=== PATIENT | female | born 1965 | race Caucasian/White ===

== ENCOUNTER 2023-02-11 19:28 | Emergency (ER) | payer MEDICAID ==
[~2023-02-11] VITALS: Ht 160 cm; Wt 53.6 kg
[2023-02-11 20:27] LABS: BASOPHILS % (AUTO) 0.5 % (0-1); EOSINOPHILS # (AUTO) 0.4 X10'3 (0-0.9); EOSINOPHILS % (AUTO) 3.9 % (0-6); HEMATOCRIT 38.5 % (35.0-45.0); HEMOGLOBIN 12.9 g/dl (12.0-16.0); LYMPHOCYTES # (AUTO) 2.6 X10'3 (1.1-4.8); LYMPHOCYTES % (AUTO) 28.7 % (21-51); MEAN CORPUSCULAR HEMOGLOBIN 30.1 PG (27.0-31.0); MEAN CORPUSCULAR HGB CONC 33.5 g/dL (33.0-36.5); MEAN CORPUSCULAR VOLUME 89.7 FL (78-98); MEAN PLATELET VOLUME 7.3 FL (7.4-10.4); MONOCYTES # (AUTO) 0.8 X10'3 (0-0.9); MONOCYTES % (AUTO) 8.5 % (2-12); NEUTROPHILS # (AUTO) 5.2 X10'3 (1.8-7.7); NEUTROPHILS % (AUTO) 58.4 % (42-75); PLATELET COUNT 368 X10'3 (140-440); RED BLOOD COUNT 4.29 X10'6 (4.20-5.60); RED CELL DISTRIBUTION WIDTH 15.7 % (11.5-14.5)
[2023-02-11 20:29] LABS: BILIRUBIN,URINE NEGATIVE (Neg); CLARITY,URINE SLIGHTLY CLOUDY (Clear); COLOR,URINE YELLOW (Yellow); GLUCOSE, URINE NEGATIVE (Neg); KETONES,URINE NEGATIVE (Neg); LEUKOCYTE ESTERASE ,URINE TRACE (Neg); NITRITES, URINE NEGATIVE (Neg); OCCULT BLOOD,URINE NEGATIVE (Neg); PROTEIN,URINE NEGATIVE (Neg); UROBILINOGEN,URINE 0.2 E.U/dL (0.2-1.0)
[2023-02-11 20:36] LABS: UA COLLECTION TYPE CLN CATCH MIDSTREAM
[2023-02-11 20:37] LABS: BACTERIA,URINE NONE SEEN /HPF (Neg); MUCUS STRANDS FEW /LPF (Neg); RBC,URINE 0-2 /HPF (0-2); SQUAMOUS EPITHELIAL CELL,UR FEW /LPF (FEW); WBC,URINE 0-4 /HPF (0-4)
[2023-02-11 20:42] LABS: ALANINE AMINOTRANSFERASE 20 U/L (12-78); ALBUMIN 3.8 G/DL (3.4-5.0); ALBUMIN/GLOBULIN RATIO 1.1 (1.1-1.5); ALKALINE PHOSPHATASE 60 IU/L (46-116); ANION GAP 9 (8-16); ASPARTATE AMINO TRANSFERASE 15 U/L (10-37); BILIRUBIN,TOTAL 0.4 MG/DL (0.1-1.0); BLOOD UREA NITROGEN 18 MG/DL (7-18); BUN/CREATININE RATIO 17.5 (10.0-20.0); CALCIUM 9.5 MG/DL (8.5-10.1); CHLORIDE 103 MMOL/L (99-107); CREATININE 1.03 MG/DL (0.40-0.90); GLUCOSE 112 MG/DL (70-104); POTASSIUM 3.8 MMOL/L (3.5-5.1); SODIUM 138 MMOL/L (135-145); TOTAL CARBON DIOXIDE 26.2 MMOL/L (24-32); TOTAL PROTEIN 7.3 G/DL (6.4-8.2); eCRCL 48 ML/MIN; eGFR 55 ML/MIN
[2023-02-11 20:44] LABS: URINE AMPHETAMINE SCREEN POSITIVE (Neg); URINE BARBITUATE SCREEN NEGATIVE (Neg); URINE BENZODIAZEPINES SCREEN NEGATIVE (Neg); URINE CANNABINOID SCREEN NEGATIVE (Neg); URINE COCAINE SCREEN NEGATIVE (Neg); URINE METHADONE SCREEN NEGATIVE (Neg); URINE OPIATE SCREEN NEGATIVE (Neg); URINE PHENCYCLIDINE SCREEN NEGATIVE (Neg)
[2023-02-11 20:51] LABS: ETHANOL < 10 MG/DL (<10); THYROID STIMULATING HORMONE 1.06 ulU/ml (0.34-4.50)
[2023-02-11 20:53] LABS: URINE HCG NEGATIVE (NEG)
--- NOTE | 2023-02-11 21:30 | NUR ---
Received pt from [facility]. PT here for SI, pt currently has thoughts but no plan. Pt has not been seen by an MD yet.
[2023-02-11] MEDS ORDERED: acetaminophen 325mg tablet PO ONE (23:35)
--- NOTE | 2023-02-11 23:36 | NUR ---
Dr is at beside assessing pt. Pt is cooperative.
--- NOTE | 2023-02-12 00:52 | NUR ---
Pt states she hears voices but does not elaborate, she also verbalizes HI and when asked who, she states she does not know who. Pt is homesless +meth, denies alcohol use.
--- NOTE | 2023-02-12 00:54 | NUR ---
Pt appears to be sleeping.
--- NOTE | 2023-02-12 03:03 | NUR ---
Pt appears to be sleeping
[2023-02-12 05:50] VITALS: BP 114/60; PULSE 72; RESP 16; TEMP 97.7; O2SAT 97
[2023-02-12] MEDS ORDERED: ziprasidone IM 20mg inj **IM only IM ONE (06:10)
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
--- NOTE | 2023-02-12 08:16 | NUR ---
Faxed packet to [facility]
--- NOTE | 2023-02-12 08:17 | NUR ---
Patient continues to sleep. Respirations equal and nonlabored. No distress observed.
--- NOTE | 2023-02-12 10:16 | NUR ---
Patient sitting up in bed eating. No distress observed. Continue to monitor.
--- NOTE | 2023-02-12 13:28 | NUR ---
Note jocynandini in ED - 02/12/23 at 1331 by SOM Choking: Pt may have been choking on her watermelon. Pt attempting to cough it out. Assisted pt with heimlich maneuver. This was successful. Pt coughed up pieces of watermelon. Pt encouraged to cut up smaller pieces. Pt continues eating lunch.
--- NOTE | 2023-02-12 13:32 | NUR ---
Choking: Pt may have been choking on her watermelon. Pt attempting to cough it out. Assisted pt with heimlich maneuver. This was successful. Pt coughed up pieces of watermelon. Pt encouraged to cut up smaller pieces. Pt continues eating lunch.
[2023-02-12] MEDS ORDERED: LORazepam 1 MG tablet PO ONE (14:25)
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
--- NOTE | 2023-02-12 16:11 | NUR ---
Patient sleeping and is soon to be discharged as patient denies being suicidal. RN to give patient her clothes to get dressed and will give the patient a sack lunch. Patient is on the 30 day out at the [facility].
== END 2023-02-12 20:04 | disposition home or self-care (01) ==
LOC: EDBD 19:28 → ER 19:28
DX: R45.851 Suicidal ideations (principal); Z20.822 Contact with and (suspected) exposure to COVID-19
CPT/HCPCS: 36415; 80053; 80305; 80320; 81001; 81025; 84443; 85025; 87811; 99285

== ENCOUNTER 2024-10-14 08:39 | Outpatient (CLI) | payer MEDICAID ==
[2024-10-14 09:11] LABS: BASOPHILS # (AUTO) 0.1 X10'3 (0-0.2); EOSINOPHILS # (AUTO) 0.1 X10'3 (0-0.9); EOSINOPHILS % (AUTO) 1.9 % (0-6); HEMATOCRIT 42.4 % (35.0-45.0); HEMOGLOBIN 14.3 g/dl (12.0-16.0); LYMPHOCYTES # (AUTO) 1.6 X10'3 (1.1-4.8); LYMPHOCYTES % (AUTO) 27.7 % (21-51); MEAN CORPUSCULAR HEMOGLOBIN 29.5 PG (27.0-31.0); MEAN CORPUSCULAR HGB CONC 33.6 g/dL (33.0-36.5); MEAN CORPUSCULAR VOLUME 87.7 FL (78-98); MEAN PLATELET VOLUME 7.1 FL (7.4-10.4); MONOCYTES # (AUTO) 0.4 X10'3 (0-0.9); MONOCYTES % (AUTO) 7.6 % (2-12); NEUTROPHILS # (AUTO) 3.7 X10'3 (1.8-7.7); NEUTROPHILS % (AUTO) 61.8 % (42-75); PLATELET COUNT 364 X10'3 (140-440); RED BLOOD COUNT 4.83 X10'6 (4.20-5.60); RED CELL DISTRIBUTION WIDTH 14.5 % (11.5-14.5); WHITE BLOOD COUNT 5.9 X10'3 (4.5-11.0)
[2024-10-14 09:28] LABS: HEMOGLOBIN A1C 5.5 % (4.5-6.2)
[2024-10-14 09:29] LABS: ALANINE AMINOTRANSFERASE 18 U/L (12-78); ALBUMIN 3.7 G/DL (3.4-5.0); ALBUMIN/GLOBULIN RATIO 1.1 (1.1-1.5); ALKALINE PHOSPHATASE 79 IU/L (46-116); ANION GAP 5 (8-16); ASPARTATE AMINO TRANSFERASE 14 U/L (10-37); BILIRUBIN,TOTAL 0.5 MG/DL (0.1-1.0); BLOOD UREA NITROGEN 13 MG/DL (7-18); BUN/CREATININE RATIO 12.9 (10.0-20.0); CALCIUM 8.9 MG/DL (8.5-10.1); CHLORIDE 106 MMOL/L (99-107); CREATININE 1.01 MG/DL (0.40-0.90); GLUCOSE 90 MG/DL (70-104); POTASSIUM 3.8 MMOL/L (3.5-5.1); SODIUM 140 MMOL/L (135-145); THYROID STIMULATING HORMONE 2.73 ulU/ml (0.34-4.50); TOTAL CARBON DIOXIDE 29.3 MMOL/L (24-32); TOTAL PROTEIN 7.2 G/DL (6.4-8.2); eGFR 56 ML/MIN
[2024-10-14] MEDS ORDERED: iohexol 300mg/ml 100ml inj. ONE (09:32)
--- NOTE | 2024-10-14 12:53 | RADIOLOGY REPORT ---
Exam: CT CT ABDOMEN PELVIS W/WO IV CONTRAST History: OTHER SPECIFIED DISORDERS OF KIDNEY AND URETER Comparison Study: None available at time of dictation. Technique: Multidetector spiral CT of the abdomen and pelvis was performed from lung bases to pubic s ymphysis. Initial imaging was done without IV contrast, followed by post contrast images of the abdo men and pelvis. Intravenous contrast was administered during this examination. Multi phase imaging w as obtained. Axial, coronal and sagittal multiplanar reformats were performed by the technologist on a separate workstation. CONTRAST: Type of contrast: Omni 300 Contrast injected: 100 ml Radiation Dose : CT Dose: CTDI volume is 15 mGy. Dose-length product is 2010 mGy*cm Findings: Lung Bases: No acute or significant lung base finding. Normal heart size. No pleural or pericardial effusion. Liver: Subcentimeter left hepatic cyst. Gallbladder and biliary Tree: Unremarkable Spleen: Unremarkable Pancreas: The pancreas is normal in appearance without focal lesions or abnormal enhancement. Adrenal Glands: Left adrenal nodule measuring up to 17 mm. 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 No hydronephrosis. No nephrolithiasis. Bladder: Unremarkable Bowel: The stomach is grossly normal in appearance. Small bowel and colon are normal in caliber and d istribution. The appendix is not visualized; however, no secondary findings of acute appendicitis id entified. Ascites: Absent Lymphadenopathy: No mesenteric, retroperitoneal or periportal lymphadenopathy. Abdominal wall and Mesentery: Unremarkable. Vasculature: The visualized abdominal aorta is normal in size and caliber. Abdominal and pelvic vess els demonstrate normal enhancement. Pelvic Organs: The uterus is surgically absent. Musculoskeletal: No aggressive focal bony lesions, acute fractures or dislocation. IMPRESSION: 1. No acute abdominal or pelvic finding. 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 Consider surgical resection due to r isk of hemorrhage. No hydronephrosis or nephrolithiasis. Left adrenal nodule measuring up to 17 mm. Subcentimeter hepatic cyst. Radiation optimization: All CT scans at this facility use at least one of these dose optimization april hniques: Automated exposure control mA and/or kV adjustment per patient size (includes targeted exams where dose is matched to clinical indication) or iterative reconstruction. HS:Y
== END 2024-10-14 23:59 | disposition home or self-care (01) ==
LOC: RAD 08:39
PROVIDERS: ATTEND Nurse Practitioner Family
DX: N28.89 Other specified disorders of kidney and ureter (principal); K76.89 Other specified diseases of liver; E28.2 Polycystic ovarian syndrome; Z90.710 Acquired absence of both cervix and uterus
CPT/HCPCS: 36415; 74178; 80053; 83036; 84443; 85025; Q9967

== ENCOUNTER 2024-11-01 14:53 | Outpatient (CLI) | payer MEDICAID ==
[~2024-11-01 14:53] MED LIST: HYDR-3686 PO; NO HOME MEDS
--- NOTE | 2024-11-01 15:53 | RADIOLOGY REPORT ---
EXAM: DI LUMBAR SPINE COMPLTE HISTORY: RADICULOPATHY LUMBAR REGION COMPARISON: None TECHNIQUE: Five views of the lumbar spine were performed. FINDINGS: Osteopenia of the osseous structures No fracture or listhesis of the lumbar spine. Disc disease with loss of disc height most severe at L3 L4-5 and L4-L5.. The oblique films do not demonstrate spondylol ysis. IMPRESSION: 1. Osteopenia of the osseous structure 2. Severe disc disease with loss of disc height at L3-L4 and L4-L5. 3. Hypo lordosis of the lumbar spine suggesting muscle spasm.
== END 2024-11-01 23:59 | disposition home or self-care (01) ==
LOC: RAD 14:53
PROVIDERS: ATTEND Family Medicine
DX: M51.16 Intervertebral disc disorders with radiculopathy, lumbar region (principal); M85.88 Other specified disorders of bone density and structure, other site
CPT/HCPCS: 72110